=== PATIENT | female | born 2000 | race Caucasian/White ===

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

== ENCOUNTER 2025-02-03 00:13 | Inpatient (IN) | payer BC, OTHER ==
[~2025-02-03 00:13] MED LIST: Carboprost Tromethamine 250 MCG/1 ML Amp IM PRN; Misoprostol 25 MCG (1/4 of 100 MCG) Tab PO PRN; Misoprostol 50 MCG (1/2 of 100 MCG) Tab PO SCH; Ondansetron 4 MG/2 ML SDV IVPUSH PRN; Oxytocin/Lactated Ringers 30 UNIT/500 ML BAG IV SCH; Sodium Chloride 0.9% 10 ML Syringe FLUSH PRN
[2025-02-03] MEDS: Lactated Ringers 1,000 ML IV ONE (00:30)
[2025-02-03 00:37] LABS: PLATELET COUNT,PLT 228.0 10^3/uL (150-450); RED BLOOD CELL COUNT 3.98 10^6/uL (4.2-5.4); WHITE BLOOD CELL COUNT,WBC 7.6 10^3/uL (5.0-10.0)
[2025-02-03] MEDS: Lactated Ringers 1,000 ML IV SCH (02:30)
[2025-02-03] MEDS: Oxytocin/Normal Saline 30 UNIT/500 ML BAG IV SCH (07:24)
[2025-02-03] MEDS ORDERED: Oxytocin/Normal Saline 30 UNIT/500 ML BAG ONE (09:34)
[2025-02-03] MEDS ORDERED: Sodium Chloride 0.9% 10 ML Syringe FLUSH PRN (10:25)
[2025-02-03] MEDS ORDERED: Oxytocin 10 Units/1 ML SDV IM PRN (10:25)
[2025-02-03] MEDS: Benzocaine/Menthol 20%-0.5% Spray 78 GM Cannister TOP PRN (11:26)
[2025-02-03] MEDS: Witch Hazel Medicated Pads 100/Jar TOP PRN (11:27)
[2025-02-04 06:43] LABS: PLATELET COUNT,PLT 171.0 10^3/uL (150-450); RED BLOOD CELL COUNT 3.39 10^6/uL (4.2-5.4); WHITE BLOOD CELL COUNT,WBC 10.7 10^3/uL (5.0-10.0)
[2025-02-04] MEDS: Prenatal Multivitamin with Calcium/Folic Acid/Iron Tab PO SCH (08:31)
== END 2025-02-04 18:30 | disposition home or self-care (01) | DRG 560 ==
LOC: DL.OBCHECK 00:13 → DL.OB 00:15 → OBSVTOIN 10:04 → DL.OB 10:04
PROVIDERS: ADMIT Family Medicine; ATTEND Family Medicine
PROC: 10907ZC Drainage of Amniotic Fluid, Therapeutic from Products of Conception, Via Natural or Artificial Opening (ICD-10-PCS; principal; 2025-02-03)
PROC: 10D07Z6 Extraction of Products of Conception, Vacuum, Via Natural or Artificial Opening (ICD-10-PCS; 2025-02-03)
PROC: 0KQM0ZZ Repair Perineum Muscle, Open Approach (ICD-10-PCS; 2025-02-03)
PROC: 0UQGXZZ Repair Vagina, External Approach (ICD-10-PCS; 2025-02-03)
PROC: 3E0R3BZ Introduction of Anesthetic Agent into Spinal Canal, Percutaneous Approach (ICD-10-PCS; 2025-02-03)
PROC: 00HU33Z Insertion of Infusion Device into Spinal Canal, Percutaneous Approach (ICD-10-PCS; 2025-02-03)
PROC: 4A1HXCZ Monitoring of Products of Conception, Cardiac Rate, External Approach (ICD-10-PCS; 2025-02-03)
PROC: 3E0334Z Introduction of Serum, Toxoid and Vaccine into Peripheral Vein, Percutaneous Approach (ICD-10-PCS; 2025-02-03)
DX: O26.893 Other specified pregnancy related conditions, third trimester (principal); O70.1 Second degree perineal laceration during delivery; Z3A.39 39 weeks gestation of pregnancy; Z37.0 Single live birth; D62 Acute posthemorrhagic anemia; O90.81 Anemia of the puerperium; Z67.11 Type A blood, Rh negative
CPT/HCPCS: 36415; 51702; 59409; 85027; 85461; 86850; 86900; 86901; A9270-GY; J2590; J2791; J7120